=== PATIENT | female | born 1955 ===

== ENCOUNTER 2023-04-27 06:05 | Day surgery (SDC) | payer OTHER | END 2023-04-27 14:55 | disposition home or self-care (01) | LOC: CIR.AMB 06:05 | PROVIDERS: ATTEND Obstetrics & Gynecology | DX: N85.01 Benign endometrial hyperplasia (principal); R93.5 Abnormal findings on diagnostic imaging of other abdominal regions, including retroperitoneum; Z20.822 Contact with and (suspected) exposure to COVID-19; R10.2 Pelvic and perineal pain ==